=== PATIENT | female | born 1985 | race Caucasian/White ===

== ENCOUNTER 2020-10-02 14:12 | Emergency (ER) | payer SELFPAY ==
[~2020-10-02] VITALS: Ht 157.5 cm; Wt 76.0 kg
[~2020-10-02 14:12] MED LIST: HYDR-2678 PO; ONDA4TAB7 PO; SULF1TAB24 PO
[2020-10-02] MEDS ORDERED: IV NORMAL SALINE 1,000ML 1,000 ML IV ONE (14:30)
[2020-10-02] MEDS ORDERED: diphenhydrAMINE 50 MG/ML VIAL ONE (14:33)
--- NOTE | 2020-10-02 14:37 | PHYS DOC ---
Past History Past Medical History: No Pertinent History Past Surgical History: No Surgical History, Tonsillectomy, Other Smoking: Non-smoker Alcohol Use: None Drug Use: None General Adult EDM: Chief Complaint: SHORTNESS OF BREATH HPI: HPI: 34-year-old female presents with 7 days of fatigue, body aches, shortness of breath, chills. The patient has been around other people that tested positive for COVID-19. She is not vaccinated. She decided to come in today because it has been 7 days. She has not measured a fever at home. She denies chest pain. She has had a global headache on and off. Review of Systems: Review of Systems: Constitutional: Chills, fatigue, body aches Eyes: Denies change in visual acuity HENT: Denies nasal congestion or sore throat Respiratory: Intermittent cough with shortness of breath Cardiovascular: Denies chest pain or edema GI: Denies abdominal pain, nausea, vomiting, bloody stools or diarrhea : Denies dysuria Musculoskeletal: Denies back pain or joint pain Integument: Denies rash Neurologic: Headache. Denies focal weakness or sensory changes Endocrine: Denies polyuria or polydipsia Lymphatic: Denies swollen glands Psychiatric: Denies depression or anxiety Current Medications: Current Meds: Current Medications Medications (Trade) Dose Ordered Sig/Andrew Start Time Stop Time Status Last Admin Dose Admin Sodium Chloride 1,000 ml @ 1,000 mls/hr 1X ONCE 10/02/20 14:30 10/02/20 15:29 UNV Allergies: Allergies: Allergies Coded Allergies Type Severity Reaction Last Updated Verified No Known Drug Allergies 02/19/15 No Physical Exam: PE: Constitutional: Well developed, well nourished, obese, no acute distress, non- toxic appearance. [] HENT: Normocephalic, atraumatic, bilateral external ears normal, oropharynx moist, no oral exudates, nose normal. [] Eyes: PERRLA, EOMI, conjunctiva normal, no discharge. [] Neck: Normal range of motion, no tenderness, supple, no stridor. [] Cardiovascular: Heart rate regular rhythm, no murmur [] Lungs & Thorax: Bilateral breath sounds clear to auscultation [] Abdomen: Bowel sounds normal, soft, no tenderness, no masses, no pulsatile masses. [] Skin: Warm, dry, no erythema, no rash. [] Back: No tenderness, no CVA tenderness. [] Extremities: No tenderness, no cyanosis, no clubbing, ROM intact, no edema. [] Neurologic: Alert and oriented X 3, normal motor function, normal sensory func tion, no focal deficits noted. [] Psychologic: Affect normal, judgement normal, mood depressed. [] EKG: EKG: [] Radiology/Procedures: Radiology/Procedures: [] Heart Score: C/O Chest Pain: N/A Risk Factors: Risk Factors: DM, Current or recent (<one month) smoker, HTN, HLP, family history of CAD, obesity. Risk Scores: Score 0 - 3: 2.5% MACE over next 6 weeks - Discharge Home Score 4 - 6: 20.3% MACE over next 6 weeks - Admit for Clinical Observation Score 7 - 10: 72.7% MACE over next 6 weeks - Early Invasive Strategies Course & Med Decision Making: Course & Med Decision Making Pertinent Labs and Imaging studies reviewed. (See chart for details) The patient appears to be not feeling well. Her vital signs are within normal limits. Her oxygen is 98% on room air. Is highly likely that the patient has COVID-19. We have sent a Covid test but the results will not be available to the least tomorrow. The patient's chest x-ray shows some vascular prominence, but no focal consolidations by my read. The patient suddenly wants to leave right now. I do not have the official chest x-ray read, but I believe the patient is stable to be discharged as requested. If she develops any worsening symptoms, she is welcome to come back to the emergency room. [] Asia Disclaimer: Asia Disclaimer: This electronic medical record was generated, in whole or in part, using a voice recognition dictation system. Departure Departure: Impression: Primary Impression: COVID-19 Disposition: HOME / SELF CARE / HOMELESS Condition: STABLE Referrals: PCP,MIKE (PCP) Additional Instructions: You have been tested for or diagnosed with COVID-19. It is an infection caused by a new type of coronavirus. COVID-19 will cause cold-like or mild flu symptoms in most. It can cause more severe symptoms like problems breathing in some. There is no treatment for COVID-19. The body will clear the infection over time. Self-care will help to ease discomfort. Steps to Take: Self-Care Rest as needed. Healthy habits may help you feel better. Steps include: Choose healthy foods including fruits and vegetables. Drink water throughout the day. Get plenty of sleep each night. If you smoke, try to quit. It may ease breathing. Avoid alcohol. Keep Others Healthy The virus can spread to others. Droplets are released every time you sneeze or cough. The droplets can get into the mouth, nose, or eyes of people near you and lead to infection. To lower the chances of spreading COVID-19 to others: Stay at home until your doctor has said it is safe to leave. If you tested positive this will mean staying isolated until both of the following are true: At least 7 days have passed since the start of illness. You are free of fever for at least 72 hours without the use of medicine. During this time: - Avoid public areas, events, or transportation. Do not return to work or school until your doctor has said it is safe to do so. - Call ahead if you need to go to a medical center. Let them know you may have COVID-19. It will help them guide you where to go. They may also ask you to wear a facemask when you come to the office. - If you call for emergency medical services, let them know you may have COVID- 19. While at home: - Try to avoid close contact with others. Stay about 6 feet away. - If possible, spend most of your time in a separate room from others. - Use a face mask if you will be in close contact with others such as sharing a room or vehicle. - Have someone wipe down common surfaces in the home. Use household voice writing reporter every day on areas like doorknobs, counters, or sinks. - Cough or sneeze into a tissue. Throw the tissue away right after use. If a tissue is not available, cough or sneeze into your elbow. - Wash your hands often. Wash them after sneezing or coughing. Use soap and water and wash for at least 20 seconds. Alcohol based hand seed cleaner can be used if soap and water is not available. - Do not prepare food for others. Avoid sharing personal items like forks, spoons, or toothbrushes. - Avoid close contact with pets while you are sick. There is no evidence of the virus passing to pets. This is a safety step until more is known about this virus. Isolation can be frustrating. Social interaction can help. Keep in touch with friends and family through phone and tech options. You can still interact with others in your home, just keep a safe distance of about 6 feet. Follow-up: Your doctors office will check in with you to see if there are any changes in your health. You may be asked to keep track of symptoms to share with them. They will also let you know when you are clear to be in public again. Problems to Look Out For: Contact your doctor if your recovery is not going as you expect. Get emergency care if you have problems such as: - Trouble breathing - Nonstop chest pain or pressure - Changes in awareness, confusion, or problems waking - Lips or face have bluish color - Worsening of symptoms If you think you have an emergency, call for emergency medical services right away. As taken from [facility] PAT DAWKINS DO Oct 02, 2020 14:37
[2020-10-02] MEDS ORDERED: METOCLOPRAMIDE HCL 10 MG/2 ML VIAL. IVP ONE (14:45)
[2020-10-02] MEDS ORDERED: diphenhydrAMINE 50 MG/ML VIAL IVP ONE (14:45)
[2020-10-02 15:12] VITALS: BP 136/79
[2020-10-02 15:14] LABS: BASO % 1 % (0-3); EOS # 0.1 x10^3/uL (0.0-0.7); EOS % 2 % (0-3); HEMATOCRIT 44.8 % (36.0-47.0); LYMPH # 1.7 x10^3/uL (1.0-4.8); LYMPH % 34 % (24-48); MEAN CORPUSCULAR HEMOGLOBIN 31 pg (25-35); MEAN CORPUSCULAR HGB CONC 34 g/dL (31-37); MEAN CORPUSCULAR VOLUME 92 fL (79-100); MONO # 0.4 x10^3/uL (0.0-1.1); MONO % 8 % (0-9); NEUT # 2.9 x10^3uL (1.8-7.7); NEUT % 56 % (31-73); PLATELET COUNT 181 x10^3/uL (140-400); RED BLOOD COUNT 4.85 x10^6/uL (3.50-5.40); RED CELL DISTRIBUTION WIDTH 13.4 % (11.5-14.5); WHITE BLOOD COUNT 5.2 x10^3/uL (4.0-11.0)
--- NOTE | 2020-10-02 15:17 | RAD ---
EXAM: XR CHEST 1V 10/02/2020 2:40 PM CLINICAL INDICATION: Shortness of breath COMPARISON: None TECHNIQUE: AP view of the chest FINDINGS: The heart and mediastinum are normal. Lungs are well-expanded and clear. No consolidatio n, pleural effusion, or pneumothorax. Pulmonary vascularity is normal. The thoracic skeleton is int act. IMPRESSION: Normal chest radiograph. Electronically signed by: Jessica Rivera MD (10/02/2020 3:14 PM) [id number]
[2020-10-02 15:35] LABS: ALBUMIN 3.7 g/dL (3.4-5.0); ALBUMIN/GLOBULIN RATIO 1.2 (1.0-1.7); CALCIUM 8.8 mg/dL (8.5-10.1); CREATININE 0.6 mg/dL (0.6-1.0); GFR 115.1; POTASSIUM 4.5 mmol/L (3.5-5.1); TOTAL BILIRUBIN 0.4 mg/dL (0.2-1.0); TOTAL PROTEIN 6.7 g/dL (6.4-8.2)
== END 2020-10-02 15:23 | disposition home or self-care (01) ==
LOC: ER 14:12
DX: U07.1 COVID-19 (principal)
CPT/HCPCS: 71045; 80053; 85025; 99284; U0003

== ENCOUNTER 2020-11-28 16:47 | Emergency (ER) | payer SELFPAY | END 2020-11-28 17:12 | disposition left against medical advice (07) | LOC: ER 16:50 | DX: R10.9 Unspecified abdominal pain (principal); R11.10 Vomiting, unspecified; Z53.21 Procedure and treatment not carried out due to patient leaving prior to being seen by health care provider ==

== ENCOUNTER 2020-12-25 20:42 | Emergency (ER) | payer SELFPAY ==
[~2020-12-25] VITALS: Ht 157.5 cm; Wt 74.0 kg
--- NOTE | 2020-12-25 20:55 | PHYS DOC ---
Past History Past Medical History: No Pertinent History Past Surgical History: No Surgical History Smoking: Non-smoker Alcohol Use: None Drug Use: None Adult General Chief Complaint Chief Complaint: VOMITING IN HPI HPI Patient is a 35-year-old female who presents to the emergency department with a chief complaint of a day of nausea and vomiting and inability to eat or drink anything and also states that a few days ago she took some tests at home that were positive and wants to be rechecked for this. Denies any recent traumas, illnesses, fevers, chest pain, shortness of breath, dysuria, hematuria, blood in the stool or diarrhea. Denies any vaginal bleeding, discharge or pain. Denies any history of STIs. States he does smoke weed and cigarettes daily. Review of Systems Review of Systems Review of systems otherwise unremarkable except noted in HPI Allergies Allergies Allergies Coded Allergies Type Severity Reaction Last Updated Verified No Known Drug Allergies 02/19/15 No Physical Exam Physical Exam Constitutional: Well developed, well nourished, no acute distress, non-toxic appearance. [] HENT: Normocephalic, atraumatic, bilateral external ears normal, oropharynx moist, no oral exudates, nose normal. [] Eyes: conjunctiva normal, no discharge. [] Neck: Normal range of motion, no tenderness, supple, no stridor. [] Cardiovascular:Heart rate regular rhythm, no murmur [] Lungs & Thorax: Bilateral breath sounds clear to auscultation [] Abdomen: soft, no tenderness, no masses, no pulsatile masses. [] Skin: Warm, dry, no erythema, no rash. [] Back: No tenderness, no CVA tenderness. [] Extremities: No tenderness, no cyanosis, no clubbing, ROM intact, no edema. [] Neurologic: Alert and oriented X 3, normal motor function, normal sensory function, no focal deficits noted. [] Psychologic: Affect normal, judgement normal, mood normal. [] Current Patient Data Vital Signs Vital Signs Date Time Temp Pulse Resp B/P (MAP) Pulse Ox O2 Delivery O2 Flow Rate FiO2 12/25/20 20:47 136/79 (98) EKG EKG [] Radiology/Procedures Radiology/Procedures [] Heart Score C/O Chest Pain: No Risk Factors: Risk Factors: DM, Current or recent (<one month) smoker, HTN, HLP, family history of CAD, obesity. Risk Scores: Risk Factors: DM, Current or recent (<one month) smoker, HTN, HLP, family history of CAD, obesity. Course & Med Decision Making Course & Med Decision Making Patient is a 35-year-old female who presents to the emergency department requesting test and complaining of nausea and vomiting Vital signs notable for tachycardia which resolved in the ED. Physical exam noted above. Patient placed on monitor with IV access established and IV fluid begun. Given nausea medicine. Laboratory analysis not concerning. positive. Bedside ultrasound showing an intrauterine uterine with significant movement and heart rate at about 155 and anterior placenta with no hemorrhage noted on FAST exam. Patient stated that her nausea had resolved and she was ready to go home. Discussed all findings with patient advised to follow-up with primary care physician on Sunday and she stated that she already had an appointment on Sunday. Advised to keep the appointment. Gave return precautions to the ED. Discussed nausea medicine prescription and diet over the next few days. Patient grateful, verbalized understanding and agreed with plan of discharge. Dragon Disclaimer Dragon Disclaimer This electronic medical record was generated, in whole or in part, using a voice recognition dictation system. Departure Departure: Impression: Primary Impression: Nausea & vomiting Additional Impression: Disposition: HOME / SELF CARE / HOMELESS Condition: GOOD Referrals: PARISH DEJESUS (PCP) Patient Instructions: ABCs of , Asymptomatic Bacteriuria, Female, Diet - Hyperemesis Gravidarum, Hyperemesis Gravidarum Additional Instructions: Thank you for coming into the emergency department tonight and allowing us to take care of you. Please read all the attached information carefully to go back over things we discussed. Please take your antibiotics as prescribed for your urinary tract infection and until they are gone. It is very important that you keep your upcoming appointment with your primary care physician to discuss your and the ultrasound that was done here. As discussed you are being treated for UTI and your ultrasound showed an intrauterine with movement, and a heart rate at 155. Please come back to the ED with new or concerning symptoms as discussed. Scripts Metoclopramide Hcl (REGLAN) 10 Mg Tablet 1 TAB PO QID for N/V for 7 Days, #28 TAB 0 Refills before food and bedtime Prov: VLADIMIR GARCIA MD 12/25/20 Cephalexin (KEFLEX) 500 Mg Capsule 1 CAP PO BID for UTI for 7 Days, #14 CAP Prov: VLADIMIR GARCIA MD 12/25/20 Problem Qualifiers VLADIMIR GARCIA MD Dec 25, 2020 20:55
[2020-12-25] MEDS ORDERED: IV RINGERS SOLUTION,LACTATED 1,000 ML IV ONE (21:30)
[2020-12-25] MEDS ORDERED: METOCLOPRAMIDE HCL 10 MG/2 ML VIAL. IVP ONE (21:30)
[2020-12-25 21:38] LABS: BASO % 1 % (0-3); EOS # 0.1 x10^3/uL (0.0-0.7); EOS % 1 % (0-3); HEMATOCRIT 41.4 % (36.0-47.0); LYMPH % 22 % (24-48); MEAN CORPUSCULAR HEMOGLOBIN 31 pg (25-35); MEAN CORPUSCULAR HGB CONC 34 g/dL (31-37); MEAN CORPUSCULAR VOLUME 91 fL (79-100); MONO # 0.5 x10^3/uL (0.0-1.1); MONO % 5 % (0-9); NEUT # 6.5 x10^3uL (1.8-7.7); NEUT % 71 % (31-73); PLATELET COUNT 272 x10^3/uL (140-400); RED BLOOD COUNT 4.56 x10^6/uL (3.50-5.40); RED CELL DISTRIBUTION WIDTH 13.2 % (11.5-14.5); WHITE BLOOD COUNT 9.2 x10^3/uL (4.0-11.0)
[2020-12-25 21:44] LABS: BILIRUBIN,URINE NEG (NEG); CLARITY,URINE CLEAR; COLOR,URINE YELLOW; GLUCOSE,URINE NEG (NEG); UROBILINOGEN,URINE 0.2 mg/dL (0.2 mg/dL)
[2020-12-25 21:45] LABS: BACTERIA,URINE FEW /HPF (0-FEW); NITRITE,URINE NEG (NEG); RBC,URINE RARE /HPF (0-2); SQUAMOUS EPITHELIAL CELL,UR OCC /LPF; WBC,URINE RARE /HPF (0-4)
[2020-12-25 21:47] LABS: CALCIUM 9.3 mg/dL (8.5-10.1); CREATININE 0.6 mg/dL (0.6-1.0); GFR 114.4; POTASSIUM 3.4 mmol/L (3.5-5.1)
[2020-12-25] MEDS ORDERED: CEPH500C PO (21:50)
[2020-12-25] MEDS ORDERED: METO10TA81 PO (21:50)
[2020-12-25] MEDS ORDERED: CEPHALEXIN 250 MG CAPSULE PO ONE (22:00)
[2020-12-25 22:01] LABS: ALBUMIN 3.3 g/dL (3.4-5.0); ALBUMIN/GLOBULIN RATIO 0.9 (1.0-1.7); TOTAL BILIRUBIN 0.3 mg/dL (0.2-1.0); TOTAL PROTEIN 7.1 g/dL (6.4-8.2)
[2020-12-25 22:02] VITALS: BP 132/68
== END 2020-12-25 22:04 | disposition home or self-care (01) ==
LOC: ER 20:42
DX: O21.9 Vomiting of pregnancy, unspecified (principal); Z3A.01 Less than 8 weeks gestation of pregnancy
CPT/HCPCS: 36415; 80053; 81001; 81025; 83690; 85025; 96361; 96374; 99283; J2765; J7120